=== PATIENT | male | born 1955 | race Caucasian/White ===

== ENCOUNTER 2017-05-15 15:58 | Observation (INO) | payer BC ==
[2017-05-15] MEDS ORDERED: Sodium Chloride 0.9% 1000 ML 1,000 ML ONE (16:58)
[2017-05-15] MEDS ORDERED: Sodium Chloride 0.9% 1000 ML 1,000 ML IV SCH ×2 (17:00→19:00)
[2017-05-15 17:06] LABS: VBG BASE EXCESS 6.6 (-2.0-2.0); VBG CARBOXYHEMOGLOBIN 2.7 % T HGB (0.0-6.9); VBG HCO3- 33.9 meq/L (22-28); VBG HEMOGLOBIN 12.9; VBG O2 SATURATION 31.2 (95-100); VBG POTASSIUM 4.3 (3.5-5.1); VBG pH 7.36 (7.32-7.42)
[2017-05-15 17:13] LABS: BASOPHIL % 0.4 % (0.0-0.4); Basophil (Absolute #) 0.02 (0-0.4); Eosinophil % 3.9 % (0.00-5.0); Eosinophil (Absolute #) 0.21 (0-0.5); Granulocyte Absolute (ANC) 2.71 (1.4-6.9); Granulocytes % 50.1 % (36.0-66.0); Hematocrit 39.1 % (42-50); Hemoglobin 12.4 gm/dl (12.5-18.0); Lymphocyte (Absolute #) 1.89 (1.0-4.6); Mean Cell Volume 85.4 fl (78-100); Mean Corpuscular Hgb Concent. 31.7 g/dl (32-36); Mean Platelet Volume 8.7 fl (6-9.5); Monocyte (Absolute #) 0.57 (0.0-1.3); Monocytes % 10.6 % (0.0-12.0); Platelet Count 156 K/mm3 (150-450); Red Blood Count 4.58 M/mm3 (4.1-5.6); White Blood Count 5.4 K/mm3 (4.0-10.5)
--- NOTE | 2017-05-15 17:26 | ERPHSYRPT ---
- History of Present Illness Time Seen by Provider: 05/15/17 16:20 Source: patient Exam Limitations: clinical condition Patient Subjective Stated Complaint: pt states "I am a little confused.". Pt Daughter states "He started taking this new medication on tue, and yesterday he was a little off. His memory is not working well, he is stuttering, he is confused and his muscles are not working as well as they should." Triage Nursing Assessment: Pt alert and oriented X 3, skin pwd. Pt ambulates with a stumbling gait, pt speech is stuttering and his arm movements are irregular. Pt has generalized weakness. Physician History: PATIENT WITH A HISTORY OF TYPE 2 DIABETES, MIGRAINE HEADACHES WAS PLACED ON NEW MEDICATION DEPAKOTE 250MG TWICE DAILY, 4 DAYS AGO AND 2 DAYS LATER DEVELOPED ONSET OF STUTTERING SPEECH, CONFUSION, UNSTEADY GAIT AND GENERALIZED GAIT, WHICH HAS BEEN CONSTANT. DENIES HEADACHE, BLURRED VISION, SLURRED SPEECH, FOCAL NUMBNESS, TINGLING OR WEAKNESS IN EXTREMITIES Timing/Duration: day(s) Severity: severe Character of Deficits: general (difuse), impaired speech Deficits: off balance Baseline/Normal Cognition: alert oriented x 3 Current Cognition: alert oriented x 3 Baseline Gait: walks w/o assistance Associated Symptoms: confusion, other Allergies/Adverse Reactions: No Known Drug Allergies Allergy (Verified 05/15/17 16:18) Home Medications: Gabapentin 400 mg [Neurontin 400 MG] 400 mg PO QID 05/04/17 [History] Metformin HCl 500 mg [Glucophage 500 MG] 500 mg PO BIDWM 05/04/17 [History ] Rosuvastatin Calcium [Crestor] 20 mg PO DAILY 05/04/17 [History] Amitriptyline HCl [Amitriptyline HCl] 75 mg PO DAILY 05/15/17 [History] Benzonatate [Benzonatate] 100 mg PO DAILY 05/15/17 [History] Divalproex Sodium ER 250 mg [Depakote EXTENDED RELEASE 250 MG] 250 mg PO DAILY 05/15/17 [History] Escitalopram Oxalate 20 mg PO DAILY 05/15/17 [History] Sumatriptan Succinate [Imitrex] 100 mg PO DAILY 05/15/17 [History] Testosterone Enanthate 200 mg IM WEEKLY 05/15/17 [History] Hx Tetanus, Diphtheria Vaccination/Date Given: Yes Hx Influenza Vaccination/Date Given: Yes Hx Pneumococcal Vaccination/Date Given: Yes Immunizations Up to Date: Yes - Review of Systems Constitutional: No Fever, No Chills Eyes: No Symptoms Ears, Nose, & Throat: No Symptoms Respiratory: No Symptoms, No Cough, No Dyspnea Cardiac: No Symptoms, No Chest Pain, No Edema, No Syncope Abdominal/Gastrointestinal: No Symptoms, No Abdominal Pain, No Nausea, No Vomiting, No Diarrhea Genitourinary Symptoms: No Symptoms, No Dysuria Musculoskeletal: No Symptoms, No Back Pain, No Neck Pain Skin: No Symptoms, No Rash Neurological: No Dizziness, No Focal Weakness, No Sensory Changes Psychological: No Symptoms Endocrine: No Symptoms All Other Systems: Reviewed and Negative - Past Medical History Pertinent Past Medical History: Yes Neurological History: No Pertinent History ENT History: No Pertinent History Cardiac History: High Cholesterol, Hypertension Respiratory History: Sleep Apnea Endocrine Medical History: Diabetes Type II Musculoskeletal History: No Pertinent History GI Medical History: No Pertinent History History: No Pertinent History Psycho-Social History: No Pertinent History Male Reproductive Disorders: No Pertinent History Other Medical History: PRIOR SURGERY IN R SHOULDER TO DECREASE IMPINGEMENT. - Past Surgical History Past Surgical History: Yes Neuro Surgical History: No Pertinent History Cardiac: No Pertinent History Respiratory: No Pertinent History Gastrointestinal: No Pertinent History Genitourinary: No Pertinent History Musculoskeletal: Orthopedic Surgery Male Surgical History: No Pertinent History Other Surgical History: back surgery ,knee surgery,shoulder scope - Social History Smoking Status: Former smoker Exposure to second hand smoke: No Drug Use: none Patient Lives Alone: No - Nursing Vital Signs Nursing Vital Signs: Initial Vital Signs Temperature 97.8 F 05/15/17 16:11 Pulse Rate 74 05/15/17 16:11 Respiratory Rate 16 05/15/17 16:11 Blood Pressure 133/77 05/15/17 16:11 O2 Sat by Pulse Oximetry 94 L 05/15/17 16:11 Pain Scale Pain Intensity 0 - [place] Coma Scale Best Eye Response ([place]): (4) open spontaneously Best Verbal Response ([place]): (5) oriented Best Motor Response ([place]): (6) obeys commands Panda Total: 15 - Physical Exam General Appearance: no apparent distress, alert Eye Exam: bilateral eye: PERRL, EOMI Ears, Nose, Throat Exam: normal ENT inspection, moist mucous membranes Neck Exam: normal inspection, non-tender, supple Respiratory: normal breath sounds, lungs clear, airway intact, No respiratory distress Cardiovascular: regular rate/rhythm, No edema Gastrointestinal: soft, normal bowel sounds, No tenderness, No distention Back Exam: normal inspection, normal range of motion Extremity Exam: normal inspection, normal range of motion, No pedal edema Peripheral Pulses: carotid (R): 2+, carotid (L): 2+, femoral (R): 2+, femoral (L ): 2+, dorsalis-pedis (R): 2+, dorsalis-pedis (L): 2+ 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, 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 Exam: normal hearing, normal speech, facial paresthesias (RIGHT FACIAL HYPOESTHESIA TO LIGHT TOUCH AND PIN PRICK), tongue midline Coordination/Gait: abnormal gait, ABN nose to finger (L) (WITH SLIGHT ATAXIA) Motor/Sensory: no motor deficit, no sensory deficit DTR: bicep (R): 2+, bicep (L): 2+, tricep (R): 2+, tricep (L): 2+ Skin Exam: normal color, warm, dry, No rash SpO2: 94 Oxygen Delivery: Room Air - Course EKG Interpreted by Me: RATE, Sinus Rhythm, NORMAL AXIS - CT Exams Head CT Interpretation: Tele-radiologist Report, No/Intracranial Hemorrhag Ordered Tests: Active Orders 24 hr Category Date Time Status Up With Assistance ROUTINE Activity 05/15/17 18:58 Ordered Accucheck ACHS Care 05/15/17 18:58 Ordered Call Admit Doctor for Orders ON ADMISSION Care 05/15/17 19:00 Ordered Window Caser STAT Care 05/15/17 16:47 Active Clean Catch Urine Specimen STAT Care 05/15/17 16:46 Active Code Status Order ROUTINE Care 05/15/17 18:58 Ordered EKG-ER Only STAT Care 05/15/17 16:46 Active IV Care Q6H Care 05/15/17 18:58 Ordered Neuro Checks Q4H Care 05/15/17 18:[address] in Observation ROUTINE Care 05/15/17 18:58 Ordered Pulse Oximetry (ED) STAT Care 05/15/17 16:46 Active Vital Signs Q4H Care 05/15/17 18:58 Ordered 1800 Calorie ADA Diet 05/15/17 Dinner Ordered HEAD WITHOUT CONTRAST [CT] Stat Exams 05/15/17 16:51 Taken CBC W DIFF Stat Lab 05/15/17 17:09 Completed CMP Stat Lab 05/15/17 17:09 Completed MAGNESIUM Stat Lab 05/15/17 18:56 Ordered UA W/RFX UR CULTURE Stat Lab 05/15/17 18:13 Completed Urine Triage Profile Stat Lab 05/15/17 18:13 Completed VENOUS BLOOD GAS Urgent Lab 05/15/17 17:02 Completed Transfer Order Routine Transfer 05/15/17 Ordered Medication Summary Generic Name Dose Route Start Last Admin Trade Name Gabby PRN Reason Stop Dose Admin Sodium Chloride 1,000 mls @ 200 mls/hr 05/15/17 17:00 05/15/17 17:02 Sodium Chloride 0.9% 1000 Ml IV 06/14/17 16:59 200 mls/hr .Q5H BERTHA Administration Lab/Rad Data: Laboratory Result Diagrams 05/15/17 17:09 05/15/17 17:09 Laboratory Results 05/15/17 05/15/17 05/15/17 Range/Units 18:13 18:13 17:09 WBC (4.0-10.5) K/mm3 RBC (4.1-5.6) M/mm3 Hgb (12.5-18.0) gm/dl Hct (42-50) % MCV (78-100) fl MCH (26-32) pg MCHC (32-36) g/dl RDW (11.5-14.0) % Plt Count (150-450) K/mm3 MPV (6-9.5) fl Gran % (36.0-66.0) % Eos # (Auto) (0-0.5) Absolute Lymphs (auto) (1.0-4.6) Absolute Monos (auto) (0.0-1.3) Lymphocytes % (24.0-44.0) % Monocytes % (0.0-12.0) % Eosinophils % (0.00-5.0) % Basophils % (0.0-0.4) % Absolute Granulocytes (1.4-6.9) Basophils # (0-0.4) VBG pH (7.32-7.42) VBG pCO2 at Pat Temp (42-55) mm/Hg VBG pO2 at Pat Temp (25-40) mm/Hg VBG HCO3 (22-28) meq/L VBG O2 Sat (Deepika) (95-100) VBG Base Excess (-2.0-2.0) VBG Hemoglobin VBG Carboxyhemoglobin (0.0-6.9) % T HGB POC Potassium (3.5-5.1) Sodium 145 (137-145) mmol/L Potassium 4.9 (3.5-5.1) mmol/L Chloride 105 (98-107) mmol/L Carbon Dioxide 30 (22-30) mmol/L Anion Gap 14.9 (5-15) MEQ/L BUN 13 (9-20) mg/dL Creatinine 1.21 (0.66-1.25) mg/dL Estimated GFR > 60 ML/MIN Glucose 84 (74-106) mg/dL Calcium 9.3 (8.4-10.2) mg/dL Total Bilirubin 0.50 (0.2-1.3) mg/dL AST 34 (17-59) U/L ALT 22 (0-50) U/L Alkaline Phosphatase 57 (38-126) U/L Serum Total Protein 7.4 (6.3-8.2) g/dL Albumin 4.3 (3.5-5.0) g/dL Ur Collection Type VOID Urine Color YELLOW (YELLOW) Urine Appearance CLEAR (CLEAR) Urine pH 5.0 (5-6) Ur Specific [place] 1.015 (1.005-1.025) Urine Protein NEGATIVE (Negative) Urine Ketones NEGATIVE (NEGATIVE) Urine Blood NEGATIVE (0-5) Pawan/ul Urine Nitrite NEGATIVE (NEGATIVE) Urine Bilirubin NEGATIVE (NEGATIVE) Urine Urobilinogen NORMAL (0-1) mg/dL Ur Leukocyte Esterase NEGATIVE (NEGATIVE) Urine Culture Reflexed NO (NO) Urine Glucose NEGATIVE (NEGATIVE) mg/dL Urine Opiates Level POSITIVE (NEGATIVE) Ur Methadone NEGATIVE (NEGATIVE) Urine Barbiturates NEGATIVE (NEGATIVE) Valproic Acid ug/mL Ur Phencyclidine (PCP) NEGATIVE (NEGATIVE) Urine Amphetamine NEGATIVE (NEGATIVE) U Benzodiazepine Level POSITIVE (NEGATIVE) Urine Cocaine NEGATIVE (NEGATIVE) Urine Marijuana (THC) NEGATIVE (NEGATIVE) Specimen Received 05/15/17 1818 05/15/17 05/15/17 05/15/17 Range/Units 17:09 17:02 16:50 WBC 5.4 (4.0-10.5) K/mm3 RBC 4.58 (4.1-5.6) M/mm3 Hgb 12.4 L (12.5-18.0) gm/dl Hct 39.1 L (42-50) % MCV 85.4 (78-100) fl MCH 27.0 (26-32) pg MCHC 31.7 L (32-36) g/dl RDW 14.0 (11.5-14.0) % Plt Count 156 (150-450) K/mm3 MPV 8.7 (6-9.5) fl Gran % 50.1 (36.0-66.0) % Eos # (Auto) 0.21 (0-0.5) Absolute Lymphs (auto) 1.89 (1.0-4.6) Absolute Monos (auto) 0.57 (0.0-1.3) Lymphocytes % 35.0 (24.0-44.0) % Monocytes % 10.6 (0.0-12.0) % Eosinophils % 3.9 (0.00-5.0) % Basophils % 0.4 (0.0-0.4) % Absolute Granulocytes 2.71 (1.4-6.9) Basophils # 0.02 (0-0.4) VBG pH 7.36 (7.32-7.42) VBG pCO2 at Pat Temp 60 H (42-55) mm/Hg VBG pO2 at Pat Temp 15 L (25-40) mm/Hg VBG HCO3 33.9 H* (22-28) meq/L VBG O2 Sat (Deepika) 31.2 L (95-100) VBG Base Excess 6.6 H (-2.0-2.0) VBG Hemoglobin 12.9 VBG Carboxyhemoglobin 2.7 (0.0-6.9) % T HGB POC Potassium 4.3 (3.5-5.1) Sodium (137-145) mmol/L Potassium (3.5-5.1) mmol/L Chloride (98-107) mmol/L Carbon Dioxide (22-30) mmol/L Anion Gap (5-15) MEQ/L BUN (9-20) mg/dL Creatinine (0.66-1.25) mg/dL Estimated GFR ML/MIN Glucose (74-106) mg/dL Calcium (8.4-10.2) mg/dL Total Bilirubin (0.2-1.3) mg/dL AST (17-59) U/L ALT (0-50) U/L Alkaline Phosphatase (38-126) U/L Serum Total Protein (6.3-8.2) g/dL Albumin (3.5-5.0) g/dL Ur Collection Type Urine Color (YELLOW) Urine Appearance (CLEAR) Urine pH (5-6) Ur Specific [place] (1.005-1.025) Urine Protein (Negative) Urine Ketones (NEGATIVE) Urine Blood (0-5) Pawan/ul Urine Nitrite (NEGATIVE) Urine Bilirubin (NEGATIVE) Urine Urobilinogen (0-1) mg/dL Ur Leukocyte Esterase (NEGATIVE) Urine Culture Reflexed (NO) Urine Glucose (NEGATIVE) mg/dL Urine Opiates Level (NEGATIVE) Ur Methadone (NEGATIVE) Urine Barbiturates (NEGATIVE) Valproic Acid 28.8 ug/mL Ur Phencyclidine (PCP) (NEGATIVE) Urine Amphetamine (NEGATIVE) U Benzodiazepine Level (NEGATIVE) Urine Cocaine (NEGATIVE) Urine Marijuana (THC) (NEGATIVE) Specimen Received - Progress Progress Note: 05/15/17 18:53 IV NORMAL SALILNE 200ML/HR, VALPROIC 28.8 05/15/17 19:07 Discussed with : Kaila (DISCUSSED WITH DR RODRIGUEZ AT 1850 FOR OBSERVATION) - Departure Time of Disposition: 19:00 Departure Disposition: Observation Clinical Impression: ALTERED MENTAL STATUS, MEDICATION REACTION Condition: Stable Critical Care Time: No Referrals: EVA THIBODEAUX [Primary Care Provider] -
[2017-05-15 17:32] LABS: ALBUMIN 4.3 g/dL (3.5-5.0); ALKALINE PHOSPHATASE 57 U/L (38-126); ANION GAP 14.9 MEQ/L (5-15); BLOOD UREA NITROGEN 13 mg/dL (9-20); CHLORIDE 105 mmol/L (98-107); Calcium 9.3 mg/dL (8.4-10.2); Carbon Dioxide 30 mmol/L (22-30); Creatinine 1 1.21 mg/dL (0.66-1.25); Glucose 84 mg/dL (74-106); Potassium 4.9 mmol/L (3.5-5.1); SGOT/AST 34 U/L (17-59); SGPT/ALT 22 U/L (0-50); SODIUM 145 mmol/L (137-145); Total Protein 7.4 g/dL (6.3-8.2)
[2017-05-15 18:16] LABS: Appearance CLEAR (CLEAR); Leukocyte Esterase NEGATIVE (NEGATIVE); Nitrite NEGATIVE (NEGATIVE); Specific Gravity 1.015 (1.005-1.025)
[2017-05-15 18:17] LABS: Bilirubin NEGATIVE (NEGATIVE); Blood NEGATIVE Ery/ul (0-5); Glucose NEGATIVE (NEGATIVE); Ketones NEGATIVE (NEGATIVE); Protein,Urine Dip NEGATIVE (Negative); Urobilinogen NORMAL mg/dL (0-1)
[2017-05-15 18:32] LABS: Amphetamine,Urine NEGATIVE (NEGATIVE); Barbiturate,Urine NEGATIVE (NEGATIVE); Benzodiazepine,Urine POSITIVE (NEGATIVE); Cocaine,Urine NEGATIVE (NEGATIVE); Methadone,Urine NEGATIVE (NEGATIVE); Opiate,Urine POSITIVE (NEGATIVE); PCP,Urine NEGATIVE (NEGATIVE); THC,Urine NEGATIVE (NEGATIVE)
[2017-05-15] MEDS ORDERED: Zofran 4 MG/2 ML VIAL IV PRN (18:58)
[2017-05-15] MEDS ORDERED: Neurontin 400 MG PO SCH (22:00)
[2017-05-16] MEDS ORDERED: Glucophage 500 MG PO SCH ×2 (08:00→17:00)
--- NOTE | 2017-05-16 08:07 | HP ---
DATE OF SURGERY: 05/16/2017 HISTORY OF PRESENT ILLNESS: The patient is a 62 year-old problems with some dysphagia, feels like a lump proximal esophagus worse he states sometimes lower esophagus food gets stuck. He denies any blood thinners. He denies any abdominal pain. He denies chronic heart disease. PAST MEDICAL HISTORY: Neuropathy. Seasonal allergies. PAST SURGICAL HISTORY: Back surgery, shoulder surgery, knee surgery. Last EGD was 7 to 10 years ago. MEDICATIONS: Gabapentin. ALLERGIES: NKDA. FAMILY HISTORY: Negative for esophageal cancer. SOCIAL HISTORY: No smoking or alcohol abuse. REVIEW OF SYSTEMS: Twelve systems reviewed per admission assessment. No chest pain or palpitations other systems negative or noncontributory as above and per preadmission questionnaire. PHYSICAL EXAMINATION: GENERAL: No acute distress. HEENT: Sclerae nonicteric. NECK: No JVD. CHEST: Equal excursion, nonlabored breathing. CVS: Regular rate and rhythm. ABDOMEN: Soft. No peritoneal signs. EXTREMITIES: No significant edema. NEURO: Alert, moving extremities symmetrically. No gross motor deficits noted. IMPRESSION: Dysphagia unclear etiology. I feel the patient will benefit from upper endoscopy, possible biopsy possible dilatation. He was shown the risk sheet and explained the procedure in detail but not limited to bleeding or infection, small risk of bowel injury or perforation possibly requiring open procedure, small risk of missed or nondiagnosis or incomplete exam possibly requiring barium swallow other studies or procedures, general risk of anesthesia or sedation. He also understands the possibility if dilatation performed and improves his swallowing it may need to be done again down the road. He also understands the possibility if this is more of a functional or neurological issue rather than mechanical narrowing that dilatation may not improve his situation. He understands all the above and agrees to the planned procedure and will proceed with EGD possible biopsy possible dilatation as an outpatient.
--- NOTE | 2017-05-16 08:43 | PCM.HP ---
History of Present Illness - Chief Complaint Chief Complaint: altered mental status, medication interaction Date: 05/16/17 History of Present Illness: is a 62 year old male. who has had periods of confusion over the last year or so and was doing well over the last 3 months since getting his bp under better control and his medications under better control. His family noted he was very tired for the last few days and very confused yesterday and not making since he doesn't recall this. He has hx of complicated migraines and will have amnesia with this in the past. he feels better today and his family notes he is acting like himself. He started depakote last week and has noted his nerve pain is gone now he also increased his gabapentin on his own to 800 mg four times per day. - Review of Systems Constitutional: No Fever, No Chills Eyes: No Symptoms Ears, Nose, & Throat: No Symptoms Respiratory: No Cough, No Short Of Breath Cardiac: No Chest Pain, No Edema, No Syncope Abdominal/Gastrointestinal: No Abdominal Pain, No Nausea, No Vomiting, No Diarrhea Genitourinary Symptoms: No Dysuria Musculoskeletal: No Back Pain, No Neck Pain Skin: No Rash Neurological: No Dizziness, No Focal Weakness, No Sensory Changes Psychological: No Symptoms Endocrine: No Symptoms Hematologic/Lymphatic: No Symptoms Immunological/Allergic: No Symptoms Medications & Allergies Home Medications: Home Medication List Metformin HCl 500 mg [Glucophage 500 MG] 500 mg PO BIDWM 05/04/17 [ History Confirmed 05/15/17] Rosuvastatin Calcium [Crestor] 20 mg PO DAILY 05/04/17 [History Confirmed ] Benzonatate 100 mg PO DAILY 05/15/17 [History Confirmed 05/15/17] Escitalopram Oxalate 20 mg PO DAILY 05/15/17 [History Confirmed 05/15/17] Sumatriptan Succinate [Imitrex] 100 mg PO HS PRN PRN 05/15/17 [History Confirmed 05/16/17] Testosterone Enanthate 200 mg IM 05/15/17 [History] Gabapentin 400 mg [Neurontin 400 MG] 800 mg PO TID #0 05/16/17 [Rx Confirmed 05/16/17] Glipizide 5 mg PO BIDWM #60 tablet 05/16/17 [Rx] Insulin Glargine [Lantus Insulin] 6 units SQ HS 05/16/17 [History Confirmed ] Allergies/Adverse Reactions: Allergies Allergy/AdvReac Type Severity Reaction Status Date / Time No Known Drug Allergies Allergy Verified 05/15/17 16:18 - Past Medical History Past Medical History: Yes Neurological History: No Pertinent History ENT History: No Pertinent History Cardiac History: High Cholesterol, Hypertension Respiratory History: Sleep Apnea Endocrine Medical History: Diabetes Type II Musculoskelatal History: No Pertinent History GI Medical History: No Pertinent History, Diverticulitis, Irritable Bowel History: No Pertinent History Pyscho-Social History: No Pertinent History, Anxiety Male Reproductive Disorders: No Pertinent History Comment: PRIOR SURGERY IN R SHOULDER TO DECREASE IMPINGEMENT. - Past Surgical History Past Surgical History: Yes Neuro Surgical History: No Pertinent History Cardiac History: No Pertinent History Respiratory Surgery: No Pertinent History GI Surgical History: No Pertinent History Genitourinary Surgical Hx: No Pertinent History Musculskeletal Surgical Hx: Orthopedic Surgery Male Surgical History: No Pertinent History Other Surgical History: back surgery ,knee surgery,shoulder scope - Social History Smoking Status: Former smoker Exposure to second hand smoke: No Alcohol: None Drug Use: none - Physical Exam Vital Signs: Vital Signs - 24 hr Temp Pulse Resp BP Pulse Ox 05/16/17 04:00 97.8 F 82 14 142/70 96 05/16/17 00:00 98.1 F 81 16 150/82 94 L 05/15/17 20:28 97.9 F 68 16 134/84 96 05/15/17 19:27 97.9 F 68 16 134/84 96 05/15/17 19:08 94 L 05/15/17 16:11 97.8 F 74 16 133/77 94 L General Appearance: no apparent distress, alert Neurologic Exam: alert, oriented x 3, cooperative, normal mood/affect, nml cerebellar function, nml station & gait, sensation nml, No motor deficits Eye Exam: PERRL/EOMI, eyes nml inspection Ears, Nose, Throat Exam: normal ENT inspection, TMs normal, pharynx normal, moist mucous membranes Neck Exam: normal inspection, non-tender, supple, full range of motion Respiratory Exam: normal breath sounds, lungs clear, No respiratory distress Cardiovascular Exam: regular rate/rhythm, normal heart sounds, normal peripheral pulses Gastrointestinal/Abdomen Exam: soft, normal bowel sounds, No tenderness, No mass Back Exam: normal inspection, normal range of motion, No CVA tenderness, No vertebral tenderness Extremity Exam: normal inspection, normal range of motion, pelvis stable Skin Exam: normal color, warm, dry, No rash Lymphatic Exam: No adenopathy Assessment/Plan (1) Altered mental status Status: Acute Assessment & Plan: interestingly his urine drug screen returned positive for opiate and benzodiazepine. he is not currently prescribed any of these and denies taking them but has been prescribed in the past. With his hx of complicated migraines with amnesia, I am concerned he is getting the migraines and is confused and taking the wrong medications and exacerbating by the interactions with his current medications. He was following with neurology for his migraines and neuropathy with Dr. Aguilar previously. His family is very helpful and has agreed to help set up his medications and remove his pill bottles that are extra so he doesn't take extra will d/c depakote since this is the newest medications decrease gabapentin from 800 four times a day to 800 tid stop elavil at night and change the lexapro to bedtime continue the remainder of the medications do not take any of his pain or anxiety medicines prn and f/u next week in office. Code(s): R41.82 - ALTERED MENTAL STATUS, UNSPECIFIED (2) Type 2 diabetes mellitus Status: Chronic (3) Diabetic peripheral neuropathy Status: Chronic Code(s): E11.42 - TYPE 2 DIABETES MELLITUS WITH DIABETIC POLYNEUROPATHY (4) Anxiety Status: Chronic Code(s): F41.9 - ANXIETY DISORDER, UNSPECIFIED (5) Hyperlipidemia Status: Chronic Code(s): E78.5 - HYPERLIPIDEMIA, UNSPECIFIED
--- NOTE | 2017-05-16 08:46 | PCM.DCORD ---
- Discharge Discharge Date: 05/16/17 Disposition: Home, Self-Care Condition: Stable Prescriptions: New Glipizide 5 mg PO BIDWM #60 tablet Continue Metformin HCl 500 mg [Glucophage 500 MG] 500 mg PO BIDWM Rosuvastatin Calcium [Crestor] 20 mg PO DAILY Testosterone Enanthate 200 mg IM Sumatriptan Succinate [Imitrex] 100 mg PO HS PRN PRN PRN Reason: Insomnia Escitalopram Oxalate 20 mg PO DAILY Benzonatate 100 mg PO DAILY Insulin Glargine [Lantus Insulin] 6 units SQ HS Changed Gabapentin 400 mg [Neurontin 400 MG] 800 mg PO TID #0 Discontinued Divalproex Sodium ER 250 mg [Depakote EXTENDED RELEASE 250 MG] 250 mg PO DAILY Amitriptyline HCl [Amitriptyline HCl] 75 mg PO DAILY Follow up with: EVA THIBODEAUX [Primary Care Provider] - 1 Week
--- NOTE | 2017-05-16 08:49 | XRAY ---
Indication: Dizziness. Multiple contiguous axial images obtained through the head without contrast. Comparison: November 19, 2005. Again normal appearing brain parenchyma, ventricles, and bony calvarium. Minimal mucosal thickening of the visualized right maxillary sinus. Remaining visualized paranasal sinuses and mastoid air cells are clear. Impression: Minimal right maxillary sinus disease. Remaining CT head without contrast exam is again normal. Comment: Preliminary interpretation was made by [facility]. No discrepancy. CT DI 66.59
[2017-05-16 09:22] VITALS: BP 146/88; PULSE 78; O2SAT 95
[2017-05-16] MEDS ORDERED: Glucotrol 5 MG PO SCH (09:30)
[2017-05-16] MEDS ORDERED: NON-FORMULARY ITEM (Sumatriptan Succinate [Imitrex] 100 MG) PO PRN (09:44)
[2017-05-16] MEDS ORDERED: Neurontin 400 MG PO SCH (10:00)
[2017-05-16] MEDS ORDERED: Tessalon Perles 100 MG PO SCH (10:00)
[2017-05-16] MEDS ORDERED: PROTONIX 40 MG IV IV SCH (10:00)
[2017-05-16] MEDS ORDERED: Lexapro 10 MG PO SCH (10:00)
[2017-05-16] MEDS ORDERED: NON-FORMULARY ITEM (Escitalopram Oxalate [Escitalopram Oxalate] 20 MG) PO SCH (10:00)
[2017-05-16] MEDS ORDERED: ZOCOR 20MG PO SCH (10:00)
[2017-05-16] MEDS ORDERED: NON-FORMULARY ITEM (Rosuvastatin Calcium [Crestor] 20 MG) PO SCH (10:00)
[2017-05-16] MEDS ORDERED: Lantus Insulin SQ SCH (22:00)
== END 2017-05-16 11:25 | disposition home or self-care (01) ==
LOC: ED 15:58 → MED SURG 19:44
PROVIDERS: ADMIT Family Medicine; ATTEND Family Medicine
DX: R13.10 Dysphagia, unspecified (principal); R41.82 Altered mental status, unspecified; E11.42 Type 2 diabetes mellitus with diabetic polyneuropathy; F41.9 Anxiety disorder, unspecified; E78.5 Hyperlipidemia, unspecified
CPT/HCPCS: 36415; 70450; 80053; 80164; 80307; 81002; 82805; 83735; 85025; 93005; 93041; 93268; 96360; 96361; 99285; G0378; A9270-GY

== ENCOUNTER 2017-05-23 08:24 | Day surgery (SDC) | payer BC ==
[~2017-05-23 08:24] MED LIST: Lactated Ringers 1,000 ML IV SCH
[2017-05-23] MEDS ORDERED: Ketamine HCl 50 MG/ML IV ONE (08:25)
[2017-05-23] MEDS ORDERED: DIPRIVAN 200 MG/20 ML IV ONE (08:25)
[2017-05-23] MEDS ORDERED: Lactated Ringers 1,000 ML IV ONE (08:29)
--- NOTE | 2017-05-23 08:38 | HP ---
DATE OF SURGERY: 05/23/2017 HISTORY OF PRESENT ILLNESS: The patient is a 62 year-old with what feels like a lump proximal esophagus, trouble swallowing worse with steak, occasional lower esophagus food gets stuck. He denies any abdominal pain. PAST MEDICAL HISTORY: Neuropathy related to diabetes. He has had swallowing problems off and on for years worse recently. Seasonal allergies. PAST SURGICAL HISTORY: Back surgery, shoulder surgery, knee surgery. He did have endoscopy 7 to 10 years ago. MEDICATIONS: Gabapentin. ALLERGIES: NKDA. FAMILY HISTORY: Negative for esophageal cancer. SOCIAL HISTORY: No smoking or alcohol abuse. REVIEW OF SYSTEMS: Twelve systems reviewed per admission assessment. No chest pain or palpitations other systems negative or noncontributory as above and per preadmission questionnaire. PHYSICAL EXAMINATION: GENERAL: No acute distress. HEENT: Sclerae nonicteric. NECK: No JVD. CHEST: Equal excursion, nonlabored breathing. CVS: Regular rate and rhythm. ABDOMEN: Soft, nontender, nondistended. EXTREMITIES: No significant edema. NEURO: Alert, moving extremities symmetrically. No gross motor deficits noted. IMPRESSION: Dysphagia in need of upper endoscopy possible biopsy, possible dilatation depending on operative findings of upper and lower esophagus. Risks and benefits explained in detail including but not limited to bleeding or infection, risk of bowel injury or perforation possibly requiring open procedure, risk of missed or nondiagnosis or incomplete exam possibly requiring other studies or procedures or referrals, general risk of anesthesia or sedation but not limited to. He understands as well as possibility if dilatation does improve may need it repeated again down the road. He understands if it is more of a nerve problem or functional problem or mechanical narrowing dilatation may not improve the situation. He understands and agrees to the planned procedure and will proceed with EGD possible biopsy, possible dilatation as an outpatient.
[2017-05-23 11:47] VITALS: O2SAT 97
[2017-05-23 12:07] VITALS: BP 145/94; PULSE 66
--- NOTE | 2017-05-24 07:51 | OP ---
SURGERY DATE/TIME: 05/23/2017 1030 PREOPERATIVE DIAGNOSIS: Dysphagia. POSTOPERATIVE DIAGNOSES: 1) Erosive gastritis. 2) Short segment possibly early Stanton's versus distal gastroesophagitis. 3) Distal and proximal esophageal narrowing and spasm, proximal esophageal narrowing and spasm. PROCEDURES: 1) EGD with cold biopsy of the antrum to evaluate for Helicobacter pylori. 2) Cold biopsy distal esophagus to evaluate for Stanton's esophagus short segment. 3) Distal esophageal balloon dilatation (size 20 balloon dilator). 4) Proximal esophageal dilatation (size 20 balloon dilator). SURGEON: Dr. Kevyn Laughlin. ANESTHESIA: MAC. ESTIMATED BLOOD LOSS: Minimal. INDICATIONS: As noted above. Risks and benefits explained in detail and not limited to and consent obtained. DESCRIPTION OF PROCEDURE AND FINDINGS: The patient is taken to the endoscopy room. MAC anesthesia introduced. After official time out and no disagreement with planned procedure, bite block positioned. The patient had been having a lump and dysphagia proximal esophagus as well as intermittent in the lower esophagus. Video gastroscope passed in the oropharynx. The vocal cords are widely patent. No evidence of any obvious large masses. It did have a narrowing in the proximal esophagus and spasm. There was no obvious mass to biopsy but this is where he had his symptoms of dysphagia with the narrowing and spasm. With the narrowing and spasm I felt he warranted dilatation of the areas that were symptomatic. The scope was able to be just passed through here. In the distal esophagus he had another area of spasm and narrowing. The scope was just barely able to be passed back through there. There were no signs of any obvious masses. He did have short segment of 0.5 cm or so of possible distal gastroesophagitis versus early Stanton's. A cold biopsy is taken to evaluate for early Stanton's versus distal gastroesophagitis or normal variation of gastroesophageal junction. The scope is passed back down the stomach. He did have some mild erosive gastritis. No signs of any obvious ulcers, masses or other mucosal lesions. Cold biopsy taken of the antrum to evaluate for Helicobacter pylori. The scope passed back into the stomach. There were no signs of any ulcers or other masses in the small bowel. The scope pulled back from the small bowel back into the stomach. Good hemostasis noted at the biopsy site. On retroflex little bit limited exam as the stomach is not wanting to insufflate fully but there were no signs of any obvious large hiatal hernia that could be visualized endoscopically. The scope pulled back. Gastroesophageal junction noted about 43 cm. Biopsy site had good hemostasis. Distal narrowed area that I felt would benefit from dilatation. There had been no other obvious mucosal lesions. No signs of any other masses. The scope passed back down in the stomach. Balloon catheter carefully inserted under direct vision of the stomach and pulled back to the distal esophageal symptomatic narrowed area. This was gradually inflated three stages with first stage 45 seconds, second stage 45 seconds and final stage 2 minutes. Balloon was then decompressed and then pulled back up to the proximal esophageal narrowed and spasm area that he was having the most symptoms from. The balloon was then used to gradually inflate to first stage size 18 balloon dilator for 45 seconds, second stage for 45 seconds and final stage size 20 balloon dilator for 2 minutes. The balloon was then decompressed and removed. The scope was able to be passed back down there much more easily passed down through this proximal esophageal area post-dilatation. There were no signs of any obvious full thickness issues secondary to dilatation. The scope then passed back down the stomach. Again, no signs of any full thickness issues to the distal esophageal narrowed area of dilatation. Hemostasis noted. The scope was withdrawn. The patient tolerated the procedure well. Findings discussed with the family out in the waiting area.
== END 2017-05-23 11:55 | disposition home or self-care (01) ==
LOC: SDC 08:24
PROVIDERS: ATTEND Surgery
PROC: 0DB38ZX Excision of Lower Esophagus, Via Natural or Artificial Opening Endoscopic, Diagnostic (ICD-10-PCS; principal; 2017-05-23)
PROC: 0DB78ZX Excision of Stomach, Pylorus, Via Natural or Artificial Opening Endoscopic, Diagnostic (ICD-10-PCS; 2017-05-23)
PROC: 0D718ZZ Dilation of Upper Esophagus, Via Natural or Artificial Opening Endoscopic (ICD-10-PCS; 2017-05-23)
DX: R13.10 Dysphagia, unspecified (principal); K29.00 Acute gastritis without bleeding; K22.70 Barrett's esophagus without dysplasia; K20.9 Esophagitis, unspecified; K22.2 Esophageal obstruction; K22.4 Dyskinesia of esophagus; E11.40 Type 2 diabetes mellitus with diabetic neuropathy, unspecified
CPT/HCPCS: 82962; 88305; 88312; C1726; J2704

== ENCOUNTER 2017-08-18 09:50 | Emergency (ER) | payer BC ==
[2017-08-18] MEDS ORDERED: TORAdol 30 mg Injection IM ONE (10:05)
[2017-08-18] MEDS ORDERED: Norflex 60 MG/2 ML IM ONE (10:05)
[2017-08-18] MEDS ORDERED: TORAdol 30 mg Injection ONE (10:10)
[2017-08-18] MEDS ORDERED: Norflex 60 MG/2 ML ONE (10:10)
--- NOTE | 2017-08-18 10:14 | ERPHSYRPT ---
- History of Present Illness Time Seen by Provider: 08/18/17 10:05 Source: patient Exam Limitations: clinical condition Patient Subjective Stated Complaint: pt reports right sided shoulder pain beginning morning when he woke up-recieved a steroid injection from pcp tuesday-states pain is not better if anything it is workse-denies injury or heavy lifting Triage Nursing Assessment: pt pink warm and oec-ynter-ya bruising or abrasions noted-pt moving extremity with no difficulty-radial pulse regular and strong Physician History: PATIENT WITH A HISTORY OF TYPE 2 DIABETES, PERIPHERAL NEUROPATHY, COMPLAINS OF ONSET OF POSTERIOR RIGHT SHOULDER PAIN X 1 WEEK. DENIES HISTORY OF TRAUMA, INJURY, HEAVY LIFTING AND RADIATION OF PAIN DOWN HIS ARM. STATES HES HAS NO RELIEF AFTER STEROID INJECTION AT PRIMARY CARE PROVIDER OFFICE. Method of Injury: unknown Quality: sharp, throbbing Back Pain Location: T-spine Severity of Pain-Max: moderate Severity of Pain-Current: moderate Modifying Factors: Improves With: movement Associated Symptoms: muscle spasms Previous symptoms: same symptoms as today (HISTORY OF LUMBAR BULGING DISC) Allergies/Adverse Reactions: No Known Drug Allergies Allergy (Verified 08/18/17 10:01) Home Medications: Metformin HCl 500 mg [Glucophage 500 MG] 500 mg PO BIDWM 05/04/17 [History ] Rosuvastatin Calcium [Crestor] 20 mg PO DAILY 05/04/17 [History] Benzonatate 100 mg PO DAILY 05/15/17 [History] Escitalopram Oxalate 20 mg PO DAILY 05/15/17 [History] SUMAtriptan succinate [Imitrex] 100 mg PO HS PRN PRN 05/15/17 [History] Testosterone Enanthate 200 mg IM UD 05/15/17 [History] Insulin Glargine [Lantus Insulin] 6 units SQ HS 05/16/17 [History] Hx Tetanus, Diphtheria Vaccination/Date Given: No Hx Influenza Vaccination/Date Given: Yes Hx Pneumococcal Vaccination/Date Given: Yes Immunizations Up to Date: Yes - Review of Systems Constitutional: No Fever, No Chills Eyes: No Symptoms Ears, Nose, & Throat: No Symptoms Respiratory: No Symptoms, No Cough, No Dyspnea Cardiac: No Symptoms, No Chest Pain, No Edema, No Syncope Abdominal/Gastrointestinal: No Symptoms, No Abdominal Pain, No Nausea, No Vomiting, No Diarrhea Genitourinary Symptoms: No Symptoms, No Dysuria Musculoskeletal: Joint Pain, No Back Pain, No Neck Pain Skin: No Rash Neurological: No Dizziness, No Focal Weakness, No Sensory Changes Psychological: No Symptoms Endocrine: No Symptoms All Other Systems: Reviewed and Negative - Past Medical History Pertinent Past Medical History: Yes Neurological History: No Pertinent History ENT History: No Pertinent History Cardiac History: High Cholesterol, Hypertension Respiratory History: Sleep Apnea Endocrine Medical History: Diabetes Type II Musculoskeletal History: No Pertinent History GI Medical History: No Pertinent History, Diverticulitis, Irritable Bowel History: No Pertinent History Psycho-Social History: No Pertinent History, Anxiety Male Reproductive Disorders: No Pertinent History Other Medical History: PRIOR SURGERY IN R SHOULDER TO DECREASE IMPINGEMENT. back and knee surgery - Past Surgical History Past Surgical History: Yes Neuro Surgical History: No Pertinent History Cardiac: No Pertinent History Respiratory: No Pertinent History Gastrointestinal: No Pertinent History Genitourinary: No Pertinent History Musculoskeletal: Orthopedic Surgery Male Surgical History: No Pertinent History Other Surgical History: back surgery ,knee surgery,shoulder scope - Social History Smoking Status: Former smoker Exposure to second hand smoke: No Drug Use: none Patient Lives Alone: No - Nursing Vital Signs Nursing Vital Signs: Initial Vital Signs Temperature 98.2 F 08/18/17 09:54 Pulse Rate 74 08/18/17 09:54 Respiratory Rate 18 08/18/17 09:54 Blood Pressure 183/110 08/18/17 09:54 O2 Sat by Pulse Oximetry 99 08/18/17 09:54 Pain Scale Pain Intensity 9 - Physical Exam General Appearance: no apparent distress, alert Eye Exam: PERRL/EOMI, eyes nml inspection Neck Exam: normal inspection, non-tender, supple, full range of motion, No meningismus, No midline tenderness Respiratory Exam: normal breath sounds, lungs clear, No respiratory distress Cardiovascular Exam: regular rate/rhythm, normal heart sounds Gastrointestinal Exam: No tenderness, No mass Back Exam: decreased range of motion, point tenderness (TENDERNESS THORACIC SPINE T-2 TO T-4 AND RIGHT PARASPINAL TENDERNESS) Extremity Exam: normal inspection, normal range of motion, other (RIGHT SHOULDER NONTENDER, FULL RANGE OF MOTION WITHOUT PAIN, RIGHT RADIAL PULSE 2+), No calf tenderness, No pedal edema Peripheral Pulses: carotid (R): 2+, carotid (L): 2+, femoral (R): 2+, femoral (L ): 2+, dorsalis-pedis (R): 2+, dorsalis-pedis (L): 2+ Neurologic Exam: alert, oriented x 3, cooperative, 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 as tested, normal mood/affect, nml station & gait, sensation nml (MUSCLE STRENGTH 5/5 BILAT , ), No motor deficits Skin Exam: normal color, warm, dry, No rash SpO2: 99 Oxygen Delivery: Room Air - Radiology Exams T-Spine X-ray Interpretation: Discussed w/ radiologist (NORMAL ALIGNMENT WITH MINIMAL INFERIOR ENDPLATE SPURRING) Ordered Tests: Active Orders 24 hr Category Date Time Status Cervical Collar Application STAT Care 08/18/17 11:10 Ordered THORACIC SPINE (AP,LAT,SWIMM) Stat Exams 08/18/17 10:22 Completed Medication Summary Discontinued Medications Generic Name Dose Route Start Last Admin Trade Name Freq PRN Reason Stop Dose Admin Ketorolac Tromethamine 40 mg 08/18/17 10:05 08/18/17 10:12 Toradol 30 Mg Injection IM 08/18/17 10:06 40 mg STAT ONE Administration Ketorolac Tromethamine Confirm 08/18/17 10:10 Toradol 30 Mg Injection Administered 08/18/17 10:11 Dose 60 mg .ROUTE .STK-MED ONE Orphenadrine Citrate 60 mg 08/18/17 10:05 08/18/17 10:11 Norflex 60 Mg/2 Ml IM 08/18/17 10:06 60 mg STAT ONE Administration Orphenadrine Citrate Confirm 08/18/17 10:10 Norflex 60 Mg/2 Ml Administered 08/18/17 10:11 Dose 60 mg .ROUTE .STK-MED ONE - Progress Progress: pain not gone completely Progress Note: 08/18/17 10:18 ADMINISTERED [id number] IM, NORFLEX 60MG IM Counseled pt/family regarding: diagnosis, need for follow-up, rad results - Departure Time of Disposition: 11:10 Departure Disposition: Home Clinical Impression: THORACIC RADICULOPATHY Condition: Stable Critical Care Time: No Referrals: EVA THIBODEAUX [Primary Care Provider] - Additional Instructions: CONTINUE ZANAFLEX FOR MUSCLE SPASM DIRECTION. TORADOL 10MG EVERY 6 HOURS FOR MILD TO MODERATE PAIN NEEDED. CALL YOUR PRIMARY CARE PROVIDER TODAY FOR FOLLOWUP APPOINTMENT AND PHYSICAL THERAPY REFERRAL. PERCOGESIC EVERY 4 HOURS FOR BREAK THROUGH PAIN. WEAR A SOFT CERVICAL COLLAR FOR COMFORT. Prescriptions: Acetaminophen/Diphenhydramine [Percogesic 325-12.5 mg Tablet] 1 each PO Q4H PRN PRN #20 tablet PRN Reason: Pain Ketorolac Tromethamine [Toradol] 10 mg PO Q6H PRN PRN #20 tablet PRN Reason: Pain
--- NOTE | 2017-08-18 10:46 | XRAY ---
Indication: Back pain 1 week. No known injury. Comparison: Chest exam August 12, 2017. Frontal/lateral thoracic spine again demonstrates 12 typical rib-bearing thoracic vertebral segments in normal alignment with minimal inferior endplate spurring. No new/acute bony, articular, or soft tissue abnormalities.
[2017-08-18 11:27] VITALS: BP 163/107; PULSE 60; O2SAT 94
== END 2017-08-18 11:27 | disposition home or self-care (01) ==
LOC: ED 09:50
DX: M54.14 Radiculopathy, thoracic region (principal); M25.511 Pain in right shoulder; M54.6 Pain in thoracic spine; Z79.899 Other long term (current) drug therapy
CPT/HCPCS: 72072; 96372; 99284; J1885; J2360; L0120

== ENCOUNTER 2018-12-05 11:43 | Emergency (ER) | payer MEDICARE, OTHER ==
--- NOTE | 2018-12-05 12:57 | XRAY ---
Indication: Dizziness, nausea, headache, and slurred speech. Multiple contiguous axial images obtained through the head without contrast. Comparison: May 15, 2017. Stable age-appropriate global atrophy. No acute intracranial hemorrhage, abnormal extra-axial fluid collection, or mass effect. Fourth ventricle is midline without hydrocephalus. Mata-white matter differentiation preserved. Bony calvarium intact. Visualized paranasal sinuses and mastoid air cells are clear. Impression: Again negative CT head without contrast exam. CT DI 65.67
[2018-12-05 13:01] LABS: Hematocrit 41.5 % (42-50); Hemoglobin 13.5 gm/dl (12.5-18.0); Mean Cell Volume 89.6 fl (78-100); Mean Corpuscular Hemoglobin 29.2 pg (26-32); Mean Corpuscular Hgb Concent. 32.5 g/dl (32-36); Mean Platelet Volume 8.3 fl (6-9.5); Platelet Count 168 K/mm3 (150-450); Red Blood Count 4.63 M/mm3 (4.1-5.6); Red Cell Distribution Width 13.8 % (11.5-14.0); White Blood Count 8.1 K/mm3 (4.0-10.5)
[2018-12-05 13:09] LABS: INR 0.94 (0.8-3.0); PROTIME 10.6 SECONDS (8.83-12.87)
[2018-12-05 13:11] LABS: PTT 29.8 SECONDS (24.1-36.1)
[2018-12-05 13:12] LABS: ALBUMIN 4.3 g/dL (3.5-5.0); ALKALINE PHOSPHATASE 71 U/L (38-126); ANION GAP 16.2 MEQ/L (5-15); BLOOD UREA NITROGEN 11 mg/dL (9-20); CHLORIDE 106 mmol/L (98-107); Calcium 8.9 mg/dL (8.4-10.2); Carbon Dioxide 25 mmol/L (22-30); Creatinine 1 1.06 mg/dL (0.66-1.25); Glucose 116 mg/dL (74-106); Potassium 4.4 mmol/L (3.5-5.1); SGOT/AST 29 U/L (17-59); SGPT/ALT 23 U/L (0-50); SODIUM 143 mmol/L (137-145); Total Protein 7.2 g/dL (6.3-8.2)
[2018-12-05] MEDS ORDERED: Sodium Chloride 0.9% 1000 ML 1,000 ML IV STA (13:23)
[2018-12-05] MEDS ORDERED: Zofran 4 MG/2 ML VIAL IV ONE (13:23)
[2018-12-05] MEDS ORDERED: Sodium Chloride 0.9% 1000 ML 1,000 ML ONE (13:31)
[2018-12-05] MEDS ORDERED: Zofran 4 MG/2 ML VIAL ONE (13:31)
[2018-12-05 13:50] LABS: Appearance CLEAR (CLEAR); Bilirubin NEGATIVE (NEGATIVE); Blood NEGATIVE Ery/ul (0-5); Glucose NEGATIVE (NEGATIVE); Ketones NEGATIVE (NEGATIVE); Leukocyte Esterase NEGATIVE (NEGATIVE); Mucus SLIGHT /HPF (NEGATIVE); Nitrite NEGATIVE (NEGATIVE); Protein,Urine Dip NEGATIVE (Negative); Specific Gravity 1.009 (1.005-1.025); Urobilinogen NEGATIVE mg/dL (0-1)
[2018-12-05 14:05] LABS: Amphetamine,Urine NEGATIVE (NEGATIVE); Barbiturate,Urine NEGATIVE (NEGATIVE); Benzodiazepine,Urine NEGATIVE (NEGATIVE); Cocaine,Urine NEGATIVE (NEGATIVE); Methadone,Urine NEGATIVE (NEGATIVE); Opiate,Urine NEGATIVE (NEGATIVE); PCP,Urine NEGATIVE (NEGATIVE); THC,Urine NEGATIVE (NEGATIVE)
[2018-12-05 14:28] VITALS: BP 141/82; PULSE 78; O2SAT 97
--- NOTE | 2018-12-05 14:55 | ERPHSYRPT ---
- History of Present Illness Time Seen by Provider: 12/05/18 12:20 Source: patient, family Exam Limitations: no limitations Patient Subjective Stated Complaint: Pt and friend states patient has been having problems with dizziness, vomiting, difficulty walking, and talking nonsense this am. Family has stated he has been talking 'nonsense' for the past two weeks. Triage Nursing Assessment: Patient alert and oriented to person, place, and time. Pt unsteady on his feet transferring from wheelchair to bed. Skin pink, warm, dry. Pupils WILL. Lung sounds clear and equal bilaterally. Physician History: 63 y/o white male presents with dizziness, vomiting and off balance this am. pt did recently start flexeril for a right shoulder problem. pt also saw his neurologist for his right shoulder pain. dr felt patient not tracking well. told pt to stop flexeril. pts family state patient has not been making sense at times over last two weeks. pt denies headache now, denies cp, denies abd pain. pt admits to not taking adequate oral intake. Timing/Duration: week(s) (1), intermittent, worse (this am) Deficits: decrease ability to walk Baseline/Normal Cognition: alert oriented x 3 Current Cognition: alert oriented x 3 Baseline Gait: walks w/o assistance Associated Symptoms: confusion, trouble walking Allergies/Adverse Reactions: No Known Drug Allergies Allergy (Verified 12/05/18 12:25) Home Medications: Cyanocobalamin (Vitamin B-12) [Vitamin B-12] 1,000 mcg PO UD 08/18/17 [History] Duloxetine HCl [Cymbalta] 60 mg PO DAILY 08/18/17 [History] Losartan Potassium [Cozaar] 100 mg PO DAILY 08/18/17 [History] Rosuvastatin Calcium [Crestor] 40 mg PO DAILY 08/18/17 [History] Sumatriptan Succinate [Imitrex] 100 mg PO UD 08/18/17 [History] raNITIdine HCl [Ranitidine HCl] 300 mg PO UD 08/18/17 [History] Amlodipine Besylate 5 mg [Norvasc 5 mg] 5 mg PO DAILY 12/05/18 [History] Metformin HCl 500 mg [Glucophage 500 MG] 500 mg PO BIDWM 12/05/18 [History ] Montelukast Sodium 10 mg [Singulair 10 MG] 10 mg PO DAILY 12/05/18 [History] Naproxen 12/05/18 [History] Testosterone Cypionate 200 mg IM 12/05/18 [History] lamoTRIgine [Lamotrigine] 12/05/18 [History] Hx Tetanus, Diphtheria Vaccination/Date Given: Yes Hx Influenza Vaccination/Date Given: Yes Hx Pneumococcal Vaccination/Date Given: No - Review of Systems Constitutional: No Symptoms Eyes: No Symptoms Ears, Nose, & Throat: No Symptoms Respiratory: No Symptoms Cardiac: No Symptoms Abdominal/Gastrointestinal: No Symptoms Genitourinary Symptoms: No Symptoms Musculoskeletal: No Symptoms Skin: No Symptoms Neurological: Dizziness Psychological: No Symptoms Endocrine: No Symptoms Hematologic/Lymphatic: No Symptoms Immunological/Allergic: No Symptoms All Other Systems: Reviewed and Negative - Past Medical History Pertinent Past Medical History: Yes Neurological History: Peripheral Neuropathy ENT History: No Pertinent History Cardiac History: High Cholesterol, Hypertension Respiratory History: No Pertinent History Endocrine Medical History: Diabetes Type II Musculoskeletal History: Arthritis GI Medical History: No Pertinent History, Irritable Bowel History: No Pertinent History Psycho-Social History: No Pertinent History, Anxiety Male Reproductive Disorders: No Pertinent History Other Medical History: Statin drug for dyslipidemia - Past Surgical History Past Surgical History: Yes Neuro Surgical History: No Pertinent History Cardiac: No Pertinent History Respiratory: No Pertinent History Gastrointestinal: No Pertinent History Genitourinary: No Pertinent History Musculoskeletal: Orthopedic Surgery Male Surgical History: No Pertinent History Other Surgical History: back surgeryx2 ,knee surgeryx2,shoulder scope - Social History Smoking Status: Current every day smoker Exposure to second hand smoke: No Drug Use: none Patient Lives Alone: Yes - Nursing Vital Signs Nursing Vital Signs: Initial Vital Signs Temperature 97.8 F 12/05/18 12:13 Pulse Rate 86 12/05/18 12:13 Respiratory Rate 14 12/05/18 12:13 Blood Pressure 150/92 12/05/18 12:13 O2 Sat by Pulse Oximetry 98 12/05/18 12:13 Pain Scale Pain Intensity 0 - [place]na Coma Scale Best Eye Response (Panda): (4) open spontaneously Best Verbal Response (Barry): (5) oriented Best Motor Response (Panda): (6) obeys commands Barry Total: 15 - Physical Exam General Appearance: no apparent distress, alert, anxiety Eye Exam: bilateral eye: normal inspection, PERRL, EOMI Ears, Nose, Throat Exam: normal ENT inspection, moist mucous membranes Neck Exam: normal inspection, non-tender, supple, full range of motion Respiratory: normal breath sounds, lungs clear, airway intact, No chest tenderness, No respiratory distress Cardiovascular: regular rate/rhythm, normal heart sounds, normal peripheral pulses Gastrointestinal: soft, normal bowel sounds, No tenderness Rectal Exam: not done Back Exam: normal inspection, normal range of motion, No CVA tenderness, No vertebral tenderness Extremity Exam: normal inspection, normal range of motion, pelvis stable 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, oriented x 3, 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 Exam: normal hearing, normal speech, PERRL, tongue midline Coordination/Gait: normal finger to nose, normal gait, normal cerebellar function Motor/Sensory: no motor deficit, no sensory deficit, no pronator drift Skin Exam: normal color, warm SpO2 Interpretation: normal SpO2: 97 O2 Delivery: Room Air - Course Nursing assessment & vital signs reviewed: Yes EKG Interpreted by Me: RATE (79), Sinus Rhythm, NORMAL AXIS, NORMAL INTERVALS, 1st degree AV Block, NORMAL QRS, Other (no comparison ekg) Ordered Tests: Active Orders 24 hr Category Date Time Status Accucheck STAT Care 12/05/18 12:29 Active Concrete Bucket Loader STAT Care 12/05/18 12:29 Active Clean Catch Urine Specimen STAT Care 12/05/18 13:23 Active EKG-ER Only STAT Care 12/05/18 12:29 Active IV Insertion STAT Care 12/05/18 12:29 Active NPO (ED) STAT Care 12/05/18 12:29 Active HEAD WITHOUT CONTRAST [CT] Stat Exams 12/05/18 12:29 Completed CBC W DIFF Stat Lab 12/05/18 12:50 Completed CMP Stat Lab 12/05/18 12:50 Completed Manual Differential NC Stat Lab 12/05/18 12:50 Completed PROTIME WITH INR Stat Lab 12/05/18 12:50 Completed PTT Stat Lab 12/05/18 12:50 Completed UA W/RFX UR CULTURE Stat Lab 12/05/18 13:45 Completed Urine Triage Profile Stat Lab 12/05/18 13:45 Completed Medication Summary Discontinued Medications Generic Name Dose Route Start Last Admin Trade Name Freq PRN Reason Stop Dose Admin Sodium Chloride 1,000 mls @ 999 mls/hr 12/05/18 13:23 12/05/18 13:45 Sodium Chloride 0.9% 1000 Ml IV 12/05/18 14:23 999 mls/hr .Q1H1M STA Administration Sodium Chloride Confirm 12/05/18 13:31 Sodium Chloride 0.9% 1000 Ml Administered 12/05/18 13:32 Dose 1,000 mls @ ud .ROUTE .STK-MED ONE Ondansetron HCl 4 mg 12/05/18 13:23 12/05/18 13:48 Zofran 4 Mg/2 Ml Vial IV 12/05/18 13:24 4 mg STAT ONE Administration Ondansetron HCl Confirm 12/05/18 13:31 Zofran 4 Mg/2 Ml Vial Administered 12/05/18 13:32 Dose 4 mg .ROUTE .STK-MED ONE Lab/Rad Data: Laboratory Result Diagrams 12/05/18 12:50 12/05/18 12:50 Laboratory Results 12/05/18 12/05/18 12/05/18 Range/Units 13:45 13:45 12:50 WBC (4.0-10.5) K/mm3 RBC (4.1-5.6) M/mm3 Hgb (12.5-18.0) gm/dl Hct (42-50) % MCV (78-100) fl MCH (26-32) pg MCHC (32-36) g/dl RDW (11.5-14.0) % Plt Count (150-450) K/mm3 MPV (6-9.5) fl PT 10.6 (8.83-12.87) SECONDS INR 0.94 (0.8-3.0) APTT 29.8 (24.1-36.1) SECONDS Sodium (137-145) mmol/L Potassium (3.5-5.1) mmol/L Chloride (98-107) mmol/L Carbon Dioxide (22-30) mmol/L Anion Gap (5-15) MEQ/L BUN (9-20) mg/dL Creatinine (0.66-1.25) mg/dL Estimated GFR ML/MIN Glucose (74-106) mg/dL Calcium (8.4-10.2) mg/dL Total Bilirubin (0.2-1.3) mg/dL AST (17-59) U/L ALT (0-50) U/L Alkaline Phosphatase (38-126) U/L Serum Total Protein (6.3-8.2) g/dL Albumin (3.5-5.0) g/dL Urine Color YELLOW (YELLOW) Urine Appearance CLEAR (CLEAR) Urine pH 8.0 (5-6) Ur Specific [place] 1.009 (1.005-1.025) Urine Protein NEGATIVE (Negative) Urine Ketones NEGATIVE (NEGATIVE) Urine Blood NEGATIVE (0-5) Pawan/ul Urine Nitrite NEGATIVE (NEGATIVE) Urine Bilirubin NEGATIVE (NEGATIVE) Urine Urobilinogen NEGATIVE (0-1) mg/dL Ur Leukocyte Esterase NEGATIVE (NEGATIVE) Urine WBC (Auto) NONE (0-5) /HPF Urine RBC (Auto) NONE (0-2) /HPF U Epithel Cells (Auto) NONE (FEW) /HPF Urine Bacteria (Auto) NONE (NEGATIVE) /HPF Urine Mucus (Auto) SLIGHT (NEGATIVE) /HPF Urine Culture Reflexed NO (NO) Urine Glucose NEGATIVE (NEGATIVE) mg/dL Urine Opiates Level NEGATIVE (NEGATIVE) Ur Methadone NEGATIVE (NEGATIVE) Urine Barbiturates NEGATIVE (NEGATIVE) Ur Phencyclidine (PCP) NEGATIVE (NEGATIVE) Urine Amphetamine NEGATIVE (NEGATIVE) U Benzodiazepine Level NEGATIVE (NEGATIVE) Urine Cocaine NEGATIVE (NEGATIVE) Urine Marijuana (THC) NEGATIVE (NEGATIVE) 12/05/18 12/05/18 Range/Units 12:50 12:50 WBC 8.1 (4.0-10.5) K/mm3 RBC 4.63 (4.1-5.6) M/mm3 Hgb 13.5 (12.5-18.0) gm/dl Hct 41.5 L (42-50) % MCV 89.6 (78-100) fl MCH 29.2 (26-32) pg MCHC 32.5 (32-36) g/dl RDW 13.8 (11.5-14.0) % Plt Count 168 (150-450) K/mm3 MPV 8.3 (6-9.5) fl PT (8.83-12.87) SECONDS INR (0.8-3.0) APTT (24.1-36.1) SECONDS Sodium 143 (137-145) mmol/L Potassium 4.4 (3.5-5.1) mmol/L Chloride 106 (98-107) mmol/L Carbon Dioxide 25 (22-30) mmol/L Anion Gap 16.2 H (5-15) MEQ/L BUN 11 (9-20) mg/dL Creatinine 1.06 (0.66-1.25) mg/dL Estimated GFR > 60.0 ML/MIN Glucose 116 H (74-106) mg/dL Calcium 8.9 (8.4-10.2) mg/dL Total Bilirubin 0.50 (0.2-1.3) mg/dL AST 29 (17-59) U/L ALT 23 (0-50) U/L Alkaline Phosphatase 71 (38-126) U/L Serum Total Protein 7.2 (6.3-8.2) g/dL Albumin 4.3 (3.5-5.0) g/dL Urine Color (YELLOW) Urine Appearance (CLEAR) Urine pH (5-6) Ur Specific [place] (1.005-1.025) Urine Protein (Negative) Urine Ketones (NEGATIVE) Urine Blood (0-5) Pawan/ul Urine Nitrite (NEGATIVE) Urine Bilirubin (NEGATIVE) Urine Urobilinogen (0-1) mg/dL Ur Leukocyte Esterase (NEGATIVE) Urine WBC (Auto) (0-5) /HPF Urine RBC (Auto) (0-2) /HPF U Epithel Cells (Auto) (FEW) /HPF Urine Bacteria (Auto) (NEGATIVE) /HPF Urine Mucus (Auto) (NEGATIVE) /HPF Urine Culture Reflexed (NO) Urine Glucose (NEGATIVE) mg/dL Urine Opiates Level (NEGATIVE) Ur Methadone (NEGATIVE) Urine Barbiturates (NEGATIVE) Ur Phencyclidine (PCP) (NEGATIVE) Urine Amphetamine (NEGATIVE) U Benzodiazepine Level (NEGATIVE) Urine Cocaine (NEGATIVE) Urine Marijuana (THC) (NEGATIVE) - Progress Progress: improved Progress Note: 12/05/18 14:57 ct head-no acute abnormality Counseled pt/family regarding: lab results, diagnosis, need for follow-up, rad results - Departure Departure Disposition: Home Clinical Impression: Dizziness, Confusion Condition: Stable Critical Care Time: No Referrals: ARPITA RODRIGUEZ [Primary Care Provider] - Additional Instructions: call your neurologist today to make another appointment for reevaluation of the confusion. stop flexeril.
[2018-12-05 15:20] LABS: Absolute Neutrophil Ct (ANC) 6.15 (1.4-6.9); BAND 1 % (0.0-2.0); Lymphocytes 15 % (24-44); Monocyte 9 % (0.0-12.0); Neutrophils 75 % (36.-66.); Platelet Estimate NORMAL (NORMAL); Total Cells Counted 100
== END 2018-12-05 15:35 | disposition home or self-care (01) ==
LOC: ED 11:43
DX: R42 Dizziness and giddiness (principal); R41.0 Disorientation, unspecified; R11.10 Vomiting, unspecified; R26.2 Difficulty in walking, not elsewhere classified; Z79.899 Other long term (current) drug therapy; E78.00 Pure hypercholesterolemia, unspecified; I10 Essential (primary) hypertension; E11.9 Type 2 diabetes mellitus without complications; Z79.84 Long term (current) use of oral hypoglycemic drugs
CPT/HCPCS: 36000; 36415; 70450; 80053; 80307; 81001; 82962; 85025; 85610; 85730; 93005; 93041; 96374; 99284; J2405

== ENCOUNTER 2019-06-19 01:04 | Emergency (ER) | payer MEDICARE, OTHER ==
[2019-06-19 01:22] LABS: Hematocrit 40.7 % (42-50); Hemoglobin 13.2 gm/dl (12.5-18.0); Mean Cell Volume 88.1 fl (78-100); Mean Corpuscular Hemoglobin 28.6 pg (26-32); Mean Corpuscular Hgb Concent. 32.4 g/dl (32-36); Mean Platelet Volume 8.7 fl (7.5-11.0); Platelet Count 188 K/mm3 (150-450); Red Blood Count 4.62 M/mm3 (4.1-5.6); Red Cell Distribution Width 14.6 % (11.5-14.0); White Blood Count 10.4 K/mm3 (4.0-10.5)
--- NOTE | 2019-06-19 01:26 | ERPHSYRPT ---
- History of Present Illness Time Seen by Provider: 06/19/19 01:10 Historian: patient Exam Limitations: no limitations Patient Subjective Stated Complaint: pt c/o chest pain Triage Nursing Assessment: pt c/o chest pain to mid chest area on rt and lt side of center, radiating to neck and lt arm down to fingertips. Pt had chest pain yesterday some but it got really bad today at 2200 when he tried to go to bed, pt was unable to sleep. Took b/p at home 260/118. Pt took a full asa at home as well. Physician History: Patient is a 64yo M who presents to ED with c/o CP that started yesterday. CP continued into today. CP described as a substernal ache that radiates into neck and left arm. NO associated N/V or diaphoresis. Timing/Duration: yesterday Activities at Onset: none Quality: aching Location: substernal Chest Pain Radiation: neck (also radiates to left arm) Severity of Pain-Max: moderate Severity of Pain-Current: mild Modifying Factors: Improves With: nothing Associated Symptoms: denies symptoms Prior Chest Pain/Cardiac Workup: no prior chest pain Nitro Today/Relief: no nitro taken today Aspirin Treatment Today: 325 mg x 1 Allergies/Adverse Reactions: No Known Drug Allergies Allergy (Verified 06/19/19 01:17) Home Medications: Cyanocobalamin (Vitamin B-12) [Vitamin B-12] 1,000 mcg PO UD 08/18/17 [History] Duloxetine HCl [Cymbalta] 90 mg PO DAILY 08/18/17 [History] Losartan Potassium [Cozaar] 100 mg PO DAILY 08/18/17 [History] Rosuvastatin Calcium [Crestor] 40 mg PO DAILY 08/18/17 [History] Sumatriptan Succinate [Imitrex] 100 mg PO UD 08/18/17 [History] Amlodipine Besylate 5 mg [Norvasc 5 mg] 5 mg PO DAILY 12/05/18 [History] Metformin HCl 500 mg [Glucophage 500 MG] 1,000 mg PO BIDWM 12/05/18 [ History] Testosterone Cypionate 200 mg IM DIRECTIONS UNKNOWN 12/05/18 [History] lamoTRIgine [Lamotrigine] 200 mg PO BID 12/05/18 [History] Cetirizine HCl [Zyrtec] 10 mg PO DAILY 06/19/19 [History] Omeprazole 40 mg PO DAILY 06/19/19 [History] Pregabalin [Lyrica 150Mg] 150 mg PO BID 06/19/19 [History] Hx Tetanus, Diphtheria Vaccination/Date Given: No Hx Influenza Vaccination/Date Given: Yes Hx Pneumococcal Vaccination/Date Given: Yes Immunizations Up to Date: No Travel Risk - International Travel Have you traveled outside of the country in past 3 weeks: No Have you or anyone close to you been diagnosed with or: No Do your reside in a community with a known COVID-19 case?: Yes If Yes where:: [place] - Coronavirus Screening Has patient experienced Coronavirus symptoms: No - Review of Systems Constitutional: No Fever, No Chills Eyes: No Symptoms Ears, Nose, & Throat: No Symptoms Respiratory: No Symptoms, No Cough, No Dyspnea Cardiac: No Symptoms, No Chest Pain, No Edema, No Syncope Abdominal/Gastrointestinal: No Symptoms, No Abdominal Pain, No Nausea, No Vomiting, No Diarrhea Genitourinary Symptoms: No Symptoms, No Dysuria Musculoskeletal: No Symptoms, No Back Pain, No Neck Pain Skin: No Symptoms, No Rash Neurological: No Symptoms, No Dizziness, No Focal Weakness, No Sensory Changes Psychological: No Symptoms Endocrine: No Symptoms All Other Systems: Reviewed and Negative - Past Medical History Pertinent Past Medical History: Yes Neurological History: Peripheral Neuropathy ENT History: No Pertinent History Cardiac History: Angina, High Cholesterol, Hypertension Respiratory History: No Pertinent History Endocrine Medical History: Diabetes Type II Musculoskeletal History: Arthritis GI Medical History: Irritable Bowel History: No Pertinent History Psycho-Social History: Anxiety Male Reproductive Disorders: No Pertinent History Other Medical History: L-spine fusion - Past Surgical History Past Surgical History: Yes Neuro Surgical History: No Pertinent History Cardiac: No Pertinent History Respiratory: No Pertinent History Gastrointestinal: No Pertinent History Genitourinary: No Pertinent History Musculoskeletal: Orthopedic Surgery Male Surgical History: No Pertinent History Other Surgical History: back surgeryx2 ,knee surgeryx2,shoulder scopex2, L- spine fusion, ablation to neck - Social History Smoking Status: Former smoker Exposure to second hand smoke: No Drug Use: none Patient Lives Alone: Yes - Nursing Vital Signs Nursing Vital Signs: Initial Vital Signs Temperature 98.3 F 06/19/19 01:07 Pulse Rate 89 06/19/19 01:07 Respiratory Rate 17 06/19/19 01:07 Blood Pressure 163/98 06/19/19 01:07 O2 Sat by Pulse Oximetry 98 06/19/19 01:07 Pain Scale Pain Intensity 7 - Physical Exam General Appearance: no apparent distress, alert Eye Exam: PERRL/EOMI, eyes nml inspection Ears, Nose, Throat Exam: normal ENT inspection, moist mucous membranes Neck Exam: normal inspection, non-tender, supple, full range of motion Respiratory Exam: normal breath sounds, lungs clear, No respiratory distress Cardiovascular Exam: regular rate/rhythm, normal heart sounds Gastrointestinal/Abdomen Exam: soft, No tenderness, No mass Back Exam: normal inspection, No CVA tenderness, No vertebral tenderness Extremity Exam: normal inspection, normal range of motion Neurologic Exam: alert, oriented x 3, cooperative, normal mood/affect, sensation nml, No motor deficits Skin Exam: normal color, warm, dry SpO2 Interpretation: normal SpO2: 98 O2 Delivery: Room Air - Course Nursing assessment & vital signs reviewed: Yes EKG Interpreted by Me: RATE, Left [place] Deviation, NORMAL INTERVALS, Ischemic ST- T changes - Radiology Exams Chest X-ray Interpretation: Reviewed by me (No acute process. No pneumonia, no fractures) Ordered Tests: Active Orders 24 hr Category Date Time Status Controlled Area Checker STAT Care 06/19/19 01:07 Active EKG-ER Only STAT Care 06/19/19 01:06 Active IV Insertion STAT Care 06/19/19 01:06 Active Isolation, Initiate & Maintain Q4H Care 06/19/19 01:16 Active Pulse Oximetry (ED) STAT Care 06/19/19 01:06 Active CHEST 1 VIEW (PORTABLE) Stat Exams 06/19/19 01:07 Taken CBC W DIFF Stat Lab 06/19/19 01:15 Completed CMP Stat Lab 06/19/19 01:15 Completed Manual Differential NC Stat Lab 06/19/19 01:15 Completed NT PRO BNP Stat Lab 06/19/19 01:15 Completed PROTIME WITH INR Stat Lab 06/19/19 01:15 Completed PTT Stat Lab 06/19/19 01:15 Completed TROPONIN Q3H Lab 06/19/19 01:15 Completed TROPONIN Q3H Lab 06/19/19 04:15 Ordered TROPONIN Q3H Lab 06/19/19 07:15 Ordered TROPONIN Q3H Lab 06/19/19 10:15 Ordered TROPONIN Q3H Lab 06/19/19 13:15 Ordered Medication Summary Generic Name Dose Route Start Last Admin Trade Name Freq PRN Reason Stop Dose Admin Nitroglycerin/Dextrose 250 mls @ 1.5 mls/hr 06/19/19 02:37 06/19/19 02:45 Ntg 0.2mg/Ml In D5w Glass IV 07/19/19 02:36 5 mcg/min .Q24H PRN 1.5 mls/hr CHEST PAIN Administration Protocol 5 MCG/MIN Heparin Sodium/Dextrose 250 mls @ 10 mls/hr 06/19/19 02:43 Heparin 25,000 Units/D5w 250ml Premix IV 07/19/19 02:35 .Q24H BERTHA Heparin Sodium/Dextrose 25,000 units in 250 mls @ 10 mls/hr 06/19/19 02:45 02:54 Heparin 25,000 Units/D5w 250ml Premix IV 07/19/19 02:44 10 mls/hr .Q24H BERTHA 10 mls/hr Administration Discontinued Medications Generic Name Dose Route Start Last Admin Trade Name Gabby PRN Reason Stop Dose Admin Heparin Sodium (Beef Lung) 5,000 unit 06/19/19 02:34 06/19/19 02:36 Heparin 5000 Units/0.5 Ml (High Risk Med) IV 06/19/19 02:35 5,000 unit STAT ONE Administration Heparin Sodium (Beef Lung) Confirm 06/19/19 02:34 Heparin 5000 Units/0.5 Ml (High Risk Med) Administered 06/19/19 02:35 Dose 5,000 unit .ROUTE .STK-MED ONE Heparin Sodium/Dextrose 250 mls @ 10 mls/hr 06/19/19 03:00 Heparin 25,000 Units/D5w 250ml Premix IV 07/19/19 02:59 .Q24H BERTHA Heparin Sodium/Dextrose Confirm 06/19/19 02:34 Heparin 25,000 Units/D5w 250ml Premix Administered 06/19/19 02:35 Dose 25,000 units in 250 mls @ ud IV .STK-MED ONE Lab/Rad Data: Laboratory Result Diagrams 06/19/19 01:15 06/19/19 01:15 Laboratory Results 06/19/19 06/19/19 06/19/19 Range/Units 01:15 01:15 01:15 WBC (4.0-10.5) K/mm3 RBC (4.1-5.6) M/mm3 Hgb (12.5-18.0) gm/dl Hct (42-50) % MCV (78-100) fl MCH (26-32) pg MCHC (32-36) g/dl RDW (11.5-14.0) % Plt Count (150-450) K/mm3 MPV (7.5-11.0) fl Segmented Neutrophils (36.-66.) % Lymphocytes (Manual) (24-44) % Monocytes (Manual) (0.0-12.0) % Hypochromia Platelet Estimate (NORMAL) RBC Morphology Poikilocytosis Anisocytosis PT 10.5 (8.83-12.87) SECONDS INR 0.93 (0.8-3.0) APTT 32.2 (24.1-36.1) SECONDS Sodium 142 (137-145) mmol/L Potassium 3.7 (3.5-5.1) mmol/L Chloride 107 (98-107) mmol/L Carbon Dioxide 25 (22-30) mmol/L Anion Gap 13.0 (5-15) MEQ/L BUN 15 (9-20) mg/dL Creatinine 0.89 (0.66-1.25) mg/dL Estimated GFR > 60.0 ML/MIN Glucose 238 H (74-106) mg/dL Calcium 8.6 (8.4-10.2) mg/dL Total Bilirubin 0.60 (0.2-1.3) mg/dL AST 44 (17-59) U/L ALT 23 (0-50) U/L Alkaline Phosphatase 76 (38-126) U/L Troponin I 3.270 H* (0.000-0.034) ng/mL NT-Pro-B Natriuret Pep 765 (0-900) pg/mL Serum Total Protein 6.6 (6.3-8.2) g/dL Albumin 4.0 (3.5-5.0) g/dL 06/19/19 Range/Units 01:15 WBC 10.4 (4.0-10.5) K/mm3 RBC 4.62 (4.1-5.6) M/mm3 Hgb 13.2 (12.5-18.0) gm/dl Hct 40.7 L (42-50) % MCV 88.1 (78-100) fl MCH 28.6 (26-32) pg MCHC 32.4 (32-36) g/dl RDW 14.6 H (11.5-14.0) % Plt Count 188 (150-450) K/mm3 MPV 8.7 (7.5-11.0) fl Segmented Neutrophils 70 H (36.-66.) % Lymphocytes (Manual) 21 L (24-44) % Monocytes (Manual) 9 (0.0-12.0) % Hypochromia 2+ Platelet Estimate NORMAL (NORMAL) RBC Morphology ABNORMAL Poikilocytosis 1+ Anisocytosis 1+ PT (8.83-12.87) SECONDS INR (0.8-3.0) APTT (24.1-36.1) SECONDS Sodium (137-145) mmol/L Potassium (3.5-5.1) mmol/L Chloride (98-107) mmol/L Carbon Dioxide (22-30) mmol/L Anion Gap (5-15) MEQ/L BUN (9-20) mg/dL Creatinine (0.66-1.25) mg/dL Estimated GFR ML/MIN Glucose (74-106) mg/dL Calcium (8.4-10.2) mg/dL Total Bilirubin (0.2-1.3) mg/dL AST (17-59) U/L ALT (0-50) U/L Alkaline Phosphatase (38-126) U/L Troponin I (0.000-0.034) ng/mL NT-Pro-B Natriuret Pep (0-900) pg/mL Serum Total Protein (6.3-8.2) g/dL Albumin (3.5-5.0) g/dL - Progress Progress: improved Air Movement: good Progress Note: 06/19/19 02:41 Lab called. Troponin elevated at 3.2 NO STEMI. ACS/NSTEMI. Heparin bolus and drip initiated. nitro drip initiated. Case discussed with Dr. Patel utilization review coordinator at [facility] who accepts transfer. Patient agrees to transfer to [facility] for further evaluation and treatment. Heparin and nitro drip initiated. 06/19/19 03:21 Blood Culture(s) Obtained: No Antibiotics given: No Discussed with Dr.: Rose, Other (Case discussed with Dr. Patel of [facility] who accepts transfer) Will see patient in: hospital (observation) Counseled pt/family regarding: lab results, diagnosis, rad results - Departure Departure Disposition: Transfer Clinical Impression: ACS (acute coronary syndrome), Abnormal EKG, Hypertension Condition: Stable Critical Care Time: No Referrals: ARPITA RODRIGUEZ [Primary Care Provider] -
[2019-06-19 01:50] LABS: ALKALINE PHOSPHATASE 76 U/L (38-126); BLOOD UREA NITROGEN 15 mg/dL (9-20); CHLORIDE 107 mmol/L (98-107); Calcium 8.6 mg/dL (8.4-10.2); Carbon Dioxide 25 mmol/L (22-30); Creatinine 1 0.89 mg/dL (0.66-1.25); Glucose 238 mg/dL (74-106); NT PRO BNP 765 pg/mL (0-900); Potassium 3.7 mmol/L (3.5-5.1); SGOT/AST 44 U/L (17-59); SGPT/ALT 23 U/L (0-50); SODIUM 142 mmol/L (137-145); Total Protein 6.6 g/dL (6.3-8.2)
[2019-06-19 01:51] LABS: Lymphocytes 21 % (24-44); Monocyte 9 % (0.0-12.0); Neutrophils 70 % (36.-66.); Platelet Estimate NORMAL (NORMAL); Total Cells Counted 100
[2019-06-19 01:52] LABS: ANISOCYTOSIS 1+; Hypochromia 2+; Poikilocytosis 1+
[2019-06-19 02:22] VITALS: BP 160/91
[2019-06-19] MEDS ORDERED: Heparin 5000 UNITS/0.5 ML (HIGH RISK MED) ONE (02:34)
[2019-06-19] MEDS ORDERED: Heparin 25,000 units/D5W 250ML PREMIX 25,000 UNITS/250 ML BAG IV ONE (02:34)
[2019-06-19] MEDS: Heparin 5000 UNITS/0.5 ML (HIGH RISK MED) IV ONE (02:36)
[2019-06-19 02:40] LABS: INR 0.93 (0.8-3.0); PROTIME 10.5 SECONDS (8.83-12.87)
[2019-06-19 02:43] LABS: PTT 32.2 SECONDS (24.1-36.1)
[2019-06-19] MEDS ORDERED: Heparin 25,000 units/D5W 250ML PREMIX 25,000 UNITS/250 ML BAG IV SCH (02:43)
[2019-06-19] MEDS: Ntg 0.2MG/Ml in D5W GLASS*** 250 ML IV PRN (02:45)
[2019-06-19] MEDS ORDERED: Ntg 0.2MG/Ml in D5W GLASS*** 250 ML IV ONE (02:45)
[2019-06-19] MEDS: Heparin 25,000 units/D5W 250ML PREMIX 25,000 UNITS/250 ML BAG IV SCH (02:54)
[2019-06-19 02:55] VITALS: PULSE 82
[2019-06-19] MEDS ORDERED: Heparin 25,000 units/D5W 250ML PREMIX 250 ML IV SCH (03:00)
[2019-06-19 03:22] VITALS: O2SAT 98
[2019-06-19] MEDS ORDERED: MORPHINE SULFATE 4 MG INJ ONE (03:25)
[2019-06-19] MEDS: MORPHINE SULFATE 4 MG INJ IV ONE (03:26)
--- NOTE | 2019-06-19 09:02 | XRAY ---
Indication: Chest pain. Comparison: August 12, 2017. Portable chest less inflated crowding the lung bases. No focal infiltrate, consolidation, or large effusion. Heart is not enlarged for AP portable technique. Bony thorax intact. Impression: Nonacute underinflated chest.
== END 2019-06-19 03:25 | disposition short-term general hospital (02) ==
LOC: ED 01:04
DX: I24.9 Acute ischemic heart disease, unspecified (principal); R94.31 Abnormal electrocardiogram [ECG] [EKG]; I10 Essential (primary) hypertension; Z79.899 Other long term (current) drug therapy; E11.9 Type 2 diabetes mellitus without complications; G62.9 Polyneuropathy, unspecified; F41.9 Anxiety disorder, unspecified
CPT/HCPCS: 36000; 36415; 71045; 80053; 83880; 84484; 85025; 85610; 85730; 93005; 93041; 94760; 96365; 96367; 96374; 96375; 99284; J1644; J2270

== ENCOUNTER 2021-07-28 05:43 | Day surgery (SDC) | payer MEDICARE, OTHER ==
[2021-07-28] MEDS ORDERED: Lactated Ringers 1,000 ML IV SCH (06:30)
[2021-07-28] MEDS ORDERED: DIPRIVAN 200 MG/20 ML IV ONE ×2 (07:56→08:15)
[2021-07-28] MEDS ORDERED: Versed 2 MG/2 ML Injection ONE (07:57)
[2021-07-28 09:11] VITALS: O2SAT 98
[2021-07-28 09:17] VITALS: BP 130/67; PULSE 71
--- NOTE | 2021-07-28 09:57 | OP ---
SURGERY DATE/TIME: 07/28/2021 0758 PREOPERATIVE DIAGNOSIS: Screening exam. POSTOPERATIVE DIAGNOSIS: Normal colon. PROCEDURE: Colonoscopy. SURGEON: Dr. Geronimo Bright. ANESTHESIA: MAC. Medications given by anesthesia department. HISTORY: The patient is a 66-year-old white male presenting for screening colonoscopy. He was appraised of the risks of the procedure including the risk of perforation, phlebitis, untoward reaction to medication, bleeding and missed lesions. The patient verbalized his understanding and desired to have the procedure performed. DESCRIPTION OF PROCEDURE: The patient was given the medications by the anesthesia department. He had continuous pulse oximetry, ECG monitoring, intermittent blood pressure monitoring during the examination. He was placed in the left lateral decubitus position. A digital rectal examination was performed and revealed normal anal sphincter tone, no masses and normal prostate. The flexible Olympus pediatric colonoscope was used to intubate the rectum. A view of the colon was developed sequentially to the cecum. including a short distance in the terminal ileum. Upon insertion and withdrawal, including a retroflex view in the rectum, no mucosal lesions were encountered. The scope was removed from the patient who tolerated the procedure well and was sent back to OP recovery in good condition. The prep was noted to be fair.
== END 2021-07-28 09:10 | disposition home or self-care (01) ==
LOC: SDC 05:43
PROVIDERS: ATTEND Family Medicine
DX: Z12.11 Encounter for screening for malignant neoplasm of colon (principal); E11.9 Type 2 diabetes mellitus without complications
CPT/HCPCS: 82947; G0121; J2250; J2704

== ENCOUNTER 2021-12-07 15:50 | Emergency (ER) | payer MEDICARE, OTHER ==
--- NOTE | 2021-12-07 16:57 | XRAY ---
Indication: Headache and vision changes following fall. Multiple contiguous axial images obtained through the head without contrast. Comparison: December 05, 2018 Age-appropriate global atrophy with minimal periventricular degenerative micro-ischemia. No acute intracranial hemorrhage, abnormal extra-axial fluid collection, or mass effect. Fourth ventricle is midline without hydrocephalus. Mata-white matter differentiation preserved. Bony calvarium intact. Visualized paranasal sinuses and mastoid air cells are clear. Impression: Normal aging brain including atrophy and degenerative micro-ischemia. No acute intracranial abnormalities.
[2021-12-07] MEDS ORDERED: TORAdol 30 mg Injection IM ONE (17:13)
[2021-12-07] MEDS ORDERED: TORAdol 30 mg Injection ONE (17:15)
--- NOTE | 2021-12-07 17:18 | ERPHSYRPT ---
- History of Present Illness Source: patient Exam Limitations: no limitations Patient Subjective Stated Complaint: Head injury Triage Nursing Assessment: Patient ambulated back to ED and transferred self to bed. Patient A+O X3. Patient's skin pink, warm and dry. Patient complains of head injury. Patient states yesterday he slipped in paint and fell backwards landing on the back of his head. Patient complains of dull headache 3/10. Physician History: 66 yo wm slipped on paint yesterday at his house falling backward hitting his occiput. Pt denies LOC but was dazed. Pain is 3/10. He has nausea but denies vomiting/C,T, and L-spine pain/chest pain/abdominal pain/upper extremity pain/Hip-LE pain. Occurred: yesterday Severity: mild Head Injury Location: occipital Method of Injury: other (slipped on wet paint) Loss of Consciousness: no loss of consciousness, dazed Associated Symptoms: denies symptoms, nausea, headaches Allergies/Adverse Reactions: No Known Drug Allergies Allergy (Verified 12/07/21 15:54) Home Medications: Duloxetine HCl [Cymbalta] 90 mg PO DAILY 08/18/17 [History] Rosuvastatin Calcium [Crestor] 20 mg PO DAILY 08/18/17 [History] Metformin HCl 500 mg [Glucophage 500 MG] 1,000 mg PO BIDWM 12/05/18 [His tory] Testosterone Cypionate 200 mg IM DIRECTIONS UNKNOWN 12/05/18 [History] lamoTRIgine [Lamotrigine] 400 mg PO DAILY 12/05/18 [History] Omeprazole 40 mg PO DAILY 06/19/19 [History] Pregabalin [Lyrica 150Mg] 150 mg PO BID 06/19/19 [History] Aspirin EC 81 mg [Ecotrin 81 mg] 81 mg PO DAILY 07/21/21 [History] Empagliflozin [Jardiance] 10 mg PO DAILY 07/21/21 [History] Furosemide 40 mg [Lasix 40 MG] 40 mg PO BID 07/21/21 [History] Glimepiride 4 mg [Amaryl 4 mg] 4 mg PO DAILY 07/21/21 [History] Metoprolol Tartrate 25 mg [Lopressor 25MG Tab] 12.5 mg PO BID 07/21/21 [History] Potassium Chloride [Klor-Con 8] 8 meq PO BID 07/21/21 [History] Hx Tetanus, Diphtheria Vaccination/Date Given: No Hx Influenza Vaccination/Date Given: No Hx Pneumococcal Vaccination/Date Given: Yes Immunizations Up to Date: Yes Travel Risk - International Travel Have you traveled outside of the country in past 3 weeks: No - Coronavirus Screening Are you exhibiting any of the following symptoms?: No Close contact with a COVID-19 positive Pt in past 14-21 Days: No - Vaccine Status Have you recieved a Covid-19 vaccination: Yes 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[employer]: [employer] - Vaccination Dates Date of 2cond Vaccination (if applicable): na - Review of Systems Constitutional: No Symptoms Eyes: No Symptoms Ears, Nose, & Throat: No Symptoms Respiratory: No Symptoms Cardiac: No Symptoms Abdominal/Gastrointestinal: No Symptoms Genitourinary Symptoms: No Symptoms Musculoskeletal: No Symptoms Skin: No Symptoms Neurological: No Symptoms, Headache Psychological: No Symptoms Endocrine: No Symptoms Hematologic/Lymphatic: No Symptoms Immunological/Allergic: No Symptoms - Past Medical History Pertinent Past Medical History: Yes Neurological History: Peripheral Neuropathy ENT History: No Pertinent History Cardiac History: Angina, High Cholesterol, Hypertension Respiratory History: Sleep Apnea Endocrine Medical History: Diabetes Type II Musculoskeletal History: Arthritis GI Medical History: Irritable Bowel History: No Pertinent History Psycho-Social History: No Pertinent History Male Reproductive Disorders: No Pertinent History Other Medical History: L-spine fusion - Past Surgical History Past Surgical History: Yes Neuro Surgical History: No Pertinent History Cardiac: CABG, Cardiac Catheterization Respiratory: No Pertinent History Gastrointestinal: No Pertinent History Genitourinary: No Pertinent History Musculoskeletal: Orthopedic Surgery Male Surgical History: No Pertinent History Other Surgical History: back surgeryx2 ,knee surgeryx2,shoulder scopex2, L-spine fusion, ablation to neck, AAA repair - Social History Smoking Status: Former smoker Exposure to second hand smoke: No Drug Use: none Patient Lives Alone: Yes Significant Family History: no pertinent family hx - Nursing Vital Signs Nursing Vital Signs: Initial Vital Signs Temperature 97.6 F 12/07/21 15:56 Pulse Rate 81 12/07/21 15:56 Respiratory Rate 18 12/07/21 15:56 Blood Pressure 148/74 12/07/21 15:56 O2 Sat by Pulse Oximetry 96 12/07/21 15:56 Pain Scale Pain Intensity 3 Hypertension - [place] Coma Score Best Eye Response (Panda): (4) open spontaneously Best Verbal Response ([place]): (5) oriented Best Motor Response ([place]): (6) obeys commands [place]anda Total: 15 - Physical Exam General Appearance: no apparent distress Head Injury: tenderness (Mild occiput TTP) Eye Exam: bilateral eye: normal inspection, PERRL, EOMI ENT Exam: airway nml, No evidence of ENT injury, No clear fluid (ears), No clear fluid (nose) Neck Exam: supple, trachea midline, full range of motion (C-spine NTTP) Cardiovascular/Respiratory Exam: chest non-tender, normal breath sounds, regular rate/rhythm, heart sounds normal Gastrointestinal/Abdominal Exam: soft, non tender, no distention Back Exam: normal inspection, normal range of motion, No CVA tenderness, No vertebral tenderness Extremity Exam: non-tender, normal range of motion, normal inspection, normal capillary refill Mental Status Exam: alert, oriented x 3, 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 Exam: normal hearing, normal speech, PERRL, tongue midline, No abnormal eye position, No abnormal gag reflex, No abnormal pupil position, No abnormal speech, No facial asymmetry, No facial droop, No facial paresthesias, No facial weakness, No gaze palsy, No hearing deficit (R), No hearing deficit (L), No tongue deviation to R, No tongue deviation to L Coordination/Gait Exam: normal finger to nose, normal gait, normal cerebellar function, negative Romberg's sign Motor/Sensory Exam: no motor deficit, no sensory deficit, no pronator drift, negative Babinski's sign DTR Exam: bicep (R): 2+, bicep (L): 2+ Skin Exam: normal color, warm, dry, No rash Lymphatic Exam: No adenopathy SpO2 Interpretation: normal SpO2: 96 O2 Delivery: Room Air - Course Nursing assessment & vital signs reviewed: Yes - CT Exams Head CT Interpretation: Discussed w/radiologist (CT head neg per Rad) Ordered Tests: Active Orders 24 hr Category Date Time Status HEAD WITHOUT CONTRAST [CT] Stat Exams 12/07/21 16:03 Completed Medication Summary Discontinued Medications Generic Name Dose Route Start Last Admin Trade Name Freq PRN Reason Stop Dose Admin Ketorolac Tromethamine 15 mg 12/07/21 17:13 12/07/21 17:16 Ketorolac Tromethamine 30 Mg/Ml Inj IM 12/07/21 17:14 15 mg STAT ONE Administration Ketorolac Tromethamine Confirm 12/07/21 17:15 Ketorolac Tromethamine 30 Mg/Ml Inj Administered 12/07/21 17:16 Dose 30 mg .ROUTE .STK-MED ONE - Progress Progress Note: 12/07/21 17:18 15mg IM Toradol 12/07/21 21:33 GCS 15 during entire visit Counseled pt/family regarding: diagnosis, need for follow-up, rad results - Departure Departure Disposition: Home Clinical Impression: Minor closed head injury Condition: Stable Critical Care Time: No Referrals: ARPITA RODRIGUEZ [Primary Care Provider] - Follow up/PCP as directed Instructions: Concussion, Adult (DC), Closed Head Injury (DC) Additional Instructions: Follow up with your family MD in 1-2 days Return to ER for increasing pain/focal weakness/worsening nausea-vomi ting/confusion
[2021-12-07 17:28] VITALS: BP 127/64; PULSE 79
[2021-12-07 21:34] VITALS: O2SAT 96
== END 2021-12-07 17:27 | disposition home or self-care (01) ==
LOC: ED 15:50
DX: S09.90XA Unspecified injury of head, initial encounter (principal); R51.9 Headache, unspecified; W01.198A Fall on same level from slipping, tripping and stumbling with subsequent striking against other object, initial encounter; Z79.899 Other long term (current) drug therapy
CPT/HCPCS: 70450; 96372; 99283; J1885